=== PATIENT | male | born 1990 | race Caucasian/White ===

== ENCOUNTER 2023-06-17 23:44 | Emergency (ER) | payer BC, MEDICAID ==
[~2023-06-17] VITALS: Ht 177.8 cm; Wt 99.9 kg
[2023-06-18 00:22] VITALS: BP 150/80; PULSE 88; RESP 16; TEMP 98.5; O2SAT 98
== END 2023-06-18 00:28 | disposition home or self-care (01) ==
LOC: ER 23:45
DX: S63.91XA Sprain of unspecified part of right wrist and hand, initial encounter (principal); Y08.89XA Assault by other specified means, initial encounter; Y93.89 Activity, other specified; Y92.89 Other specified places as the place of occurrence of the external cause; Y99.8 Other external cause status
CPT/HCPCS: 73130; 99283